=== PATIENT | female | born 1950 | race Caucasian/White ===

== ENCOUNTER → 2016-11-25 | Day surgery (SDC) | payer OTHER ==
[~2016-11-25] VITALS: Ht 167.6 cm; Wt 54.0 kg
[~2016-11-25] MED LIST: ALPRAZOLAM0.5 M4 PO; LEVOTHYROXINE; LIOTHYRONINE SO5 MC1 PO; SYMBICORT 16010.2 GM INH; VENTOLIN HFA18 GM INH; ZYRTEC10 M3 PO
--- NOTE | 2016-11-25 14:59 | Operative Report ---
Operative/Inv Procedure Report Surgery Date: 11/25/16 Name of Procedure: #1 left knee arthroscopic lateral release #2 chondroplasty patella Pre-Operative Diagnosis: #1 left knee osteoarthritis #2 lateral patellar tilt Post-Operative Diagnosis: Same Estimated Blood Loss: scant Surgeon/Baler: ADONIS VILLAFANA,CASSI Anesthesia: block Implants: None Specimens: none Tourniquet: Not used Complications: None Condition: Stable Operative Indication: Patient is a 66-year-old woman who has had increasing left knee pain. Her evaluation revealed findings consistent with patellofemoral osteoarthritis and patellar tilt. Patient was evaluated in our office for treatment of this. She wanted to discuss patellofemoral arthroplasty versus lateral patellar release. We discussed these options. After discussing this and mentioning that the patellofemoral arthroplasty is indicated for isolated patellofemoral disease and includes a lateral patellar release she wanted to consider isolated lateral release and monitor symptoms thereafter. I explained that this can be done arthroscopically and in doing so can directly evaluate the lateral compartment and medial compartment to identify any contraindications to proceed with a patellofemoral arthroplasty in the future. I explained to the patient that if there is any significant arthritic disease in either medial or lateral compartments then in the future if she needs to proceed with arthroplasty that it should not be an isolated patellofemoral but a total arthroplasty. She wished to proceed with the lateral release and then reevaluate her symptoms afterwards. Risks benefits and expectations including but not limited to swelling, bleeding, persistent knee pain, infection, anesthesia risks were discussed. She wished to proceed with the lateral patellar release and arthroscopic evaluation of the remainder of the joint. Operative/Procedure Note Note: Patient was brought to the operating room and transferred to the operating room table. Once under appropriate anesthesia the left lower external he was prepped and draped in standard fashion. Preoperative IV antibiotics were given prophylactically. A standard infrapatellar lateral portal site was established. Scope was inserted and the knee was evaluated. There was severe end-stage degenerative changes of the most lateral aspect of the lateral trochlea and adjacent lateral facet of the patella. There was some delamination of the central ridging of the patella and some degenerative changes in the medial facet as well. The trochlear surface overall was relatively spared up until the lateral aspect of the trochlear flange. I entered the medial compartment in doing so there was a thickened plical tissue that would be debrided later on the case. I entered the medial compartment there was some mild to moderate degenerative changes of the medial tibial plateau. I established an infrapatellar medial portal site and was able to probe the medial meniscus from its anterior horn to his posterior horn. No evidence of significant tearing. There was some fraying of the anterior horn which was debrided using a shaver. I placed the leg into a figure 4 position and I was able to evaluate the ACL prior to doing so and then the lateral compartment. 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 This was in a weightbearing portion of the lateral tibial plateau. Loose frayed articular cartilage was debrided I entered the lateral gutter no evidence of loose bodies. I went up to the patellofemoral compartment and did a chondroplasty of the lateral facet frayed articular cartilage surface in order to better visualize the lateral facet as well as the lateral retinaculum. I then performed a release under direct vision. I initially started with my working portal being my medial portal and then I switched my lateral portal to finish the release. Once I finished the release the area and the surrounding tissues at the lateral release site expanded were fluid was coming from the intra-articular space confirming our complete release. I took the knee through range of motion. Prior to the lateral release I did check the patellar tracking and in full extension the patella appeared to be flush clinically but as we flexed to about 90. Tilted laterally. When I completed a lateral release this position at 90 which much improved. Copious irrigation of the knee followed. I did obtain hemostasis using the wand which I was using from a lateral release. Once I was satisfied with this I removed all instruments and fluid from the knee. I placed a pressure dressing over the lateral release site and the portal sites were closed with interrupted nylon sutures. Appropriate dressings were applied and patient was awakened and taken the recovery room in good condition. No intraoperative Locations. Blood loss was minimal Discharge Disposition: PACU
== END ==
LOC: STS 02:38
DX: M22.42 Chondromalacia patellae, left knee (principal); M17.12 Unilateral primary osteoarthritis, left knee; E03.9 Hypothyroidism, unspecified; I47.1 Supraventricular tachycardia
CPT/HCPCS: J0131; J0690; J2250